=== PATIENT | male | born 1995 | race Caucasian/White ===

== ENCOUNTER 2018-11-09 01:06 | Emergency (ER) | payer SELFPAY ==
[2018-11-09 01:11] VITALS: BP 144/68; PULSE 51; RESP 16; TEMP 36.4; O2SAT 96
--- NOTE | 2018-11-09 01:12 | ED.GENADUL_ITS ---
Discharge Plan Disposition Patient Disposition: HOME Condition: Good Discharge Details Chief Complaint: EyeProblem Clinical Impression: Eye foreign body Primary Care Provider: Lamin Baez ED Provider: Dimas Griffith [place] Meds and New Rx's Prescriptions: New erythromycin 5 mg/gram (0.5 %) ointment 0.5 inch OP QID Qty: 3.5 RF: 0 Discharge Instructions Instructions: Erythromycin (Into the eye), Eye Foreign Body (ED) Additional Instructions: The metallic piece has been removed but there is a residual rust ring. He should contact [facility] in the morning for follow-up. Apply erythromycin ointment to the eye every 4-6 hours. Use Motrin or Tylenol for discomfort. Return to ED for increasing pain, change in vision, other problems. Referrals: [facility] [Outside] Medical Decision Making Patient with foreign body sensation left eye after grinding metal. Tetracaine drops applied. Fluorescein staining negative. Small metallic foreign body noted in the area of the medial lower quadrant. This was removed with Q-tip. Exam under slit-lamp reveals residual rust ring and corneal defect. Patient follows with Dr. Pleitez and has an appointment for Wednesday because of the broken glasses. Patient told that he should make follow-up for later today due to the rust ring. He is started on erythromycin ointment. He may use Motrin and Tylenol for pain. Return to ED if any problems, visual changes, increased pain. Note visual acuity was not done as he does not have his glasses with him. HPI General Mode of arrival: ambulatory . Date/Time Provider Initiated Documentation: 11/09/18 01:11 . Limitations to Documentation: no limitations . Information obtained by: patient . HPI Narrative: Patient presents to ED with left eye pain and irritation. Patient was grinding at work yesterday morning. He was wearing safety goggles. He felt something go in his eye. He has been irrigating it throughout the day. Continues to bother him. No one has been able to see anything but he finally come in because of the discomfort. He denies other injury. He does wear glasses but he broke those yesterday as well. His tetanus is up-to-date. Related Data Home Medications Medication Instructions Recorded Confirmed erythromycin 0.5 inch OP QID #3.5 gm 11/09/18 Previous Rx's Medication Instructions Recorded erythromycin 0.5 inch OP QID #3.5 gm 11/09/18 Allergies Allergy/AdvReac Type Severity Reaction Status Date / Time No Known Allergies Allergy Unverified 11/09/18 01:15 Review of Systems Eyes Eyes: Denies change in vision, Reports irritation and Reports eye pain PFS Social History Smoking/Tobacco Use Status: Current every day Alcohol Intake: current Alcohol Intake frequency: holidays/special occasions only Drug use: Daily Substance use type: marijuana Do you feel safe at home: Yes Do you feel safe in your relationship?: Yes Exam Const General: cooperative and comfortable Orientation: alert and oriented x3 Eyes Periorbital: periorbital findings normal Eyelids: eyelids normal Conjunctivae: conjunctival abnormality left conjunctival injection Sclera: scleral abnormality left scleral injection Cornea: corneas abnormal on the left foreign body metallic and with rust ring present Pupils: PERRL EOM: EOM intact bilaterally Procedures FB Removal Eye Location: eye (L) Topical anesthetic used: tetracaine Foreign body: metal Evidence of corneal penetration: No Technique: cotton tip swab Procedure performed under: direct visualization with magnification Post-procedure medication: ophthalmic antibiotic Patient tolerated procedure: well Complications: residual rust ring
[2018-11-09] MEDS: Fluorescein STRIPS 100/BOX 1 MG OP (01:16)
[2018-11-09] MEDS: Tetracaine 0.5% 4 ML BTL OP (01:17)
[2018-11-09 01:36] VITALS: BP 144/68; PULSE 51; RESP 16; O2SAT 96
[2018-11-09] MEDS: Erythromycin Ophth Oint 3.5 GM TUBE OS (01:38)
[2018-11-09] MEDS: Ibuprofen 600 MG TAB PO (01:38)
== END 2018-11-09 01:36 | disposition home or self-care (01) ==
PROVIDERS: Emergency Provider Emergency Medicine; PCP Physician Assistant
DX: T15.91XA Foreign body on external eye, part unspecified, right eye, initial encounter (principal)
CPT/HCPCS: 99283

== ENCOUNTER 2018-11-11 14:32 | Outpatient (CLI) | payer SELFPAY ==
[2018-11-14 14:25] LABS: GC Result Negative; Specimen Description URINE
[2018-11-14 15:19] LABS: Chlamydia Result Positive
== END 2018-11-11 14:52 ==
PROVIDERS: PCP Physician Assistant; Visit Provider Naturopath
DX: R30.0 Dysuria (principal); Z11.3 Encounter for screening for infections with a predominantly sexual mode of transmission
CPT/HCPCS: 36415; 86900; 86901; 87491; 87591

== ENCOUNTER 2018-11-13 09:26 | Outpatient (CLI) | payer SELFPAY ==
[2018-11-14 09:10] LABS: HBs Antibody, Quant <3.1 mIU/mL; Hepatitis B Surface Ab Negative
[2018-11-14 09:16] LABS: Hepatitis B Surface Ag Negative (NEGAT)
[2018-11-14 10:11] LABS: Hep B Core Antibody Negative (NEGAT)
[2018-11-14 10:12] LABS: HIV-1/2 Ag & Ab Screen Negative (NEGAT)
[2018-11-14 10:56] LABS: Hepatitis C Ab w Rflx HCV PCR Negative (NEGAT)
[2018-11-14 13:07] LABS: HSV Type 1 Ab, IgG Positive; HSV Type 2 Ab, IgG Negative; Syphilis Serology (RPR) Negative (Negative)
[2018-11-15 19:59] LABS: HSV Ab Screen, IGM by EIA Negative (Negative)
== END 2018-11-13 09:46 ==
PROVIDERS: PCP Physician Assistant; Visit Provider Naturopath
DX: Z11.3 Encounter for screening for infections with a predominantly sexual mode of transmission (principal); Z20.2 Contact with and (suspected) exposure to infections with a predominantly sexual mode of transmission; Z11.4 Encounter for screening for human immunodeficiency virus [HIV]; Z11.59 Encounter for screening for other viral diseases
CPT/HCPCS: 36415; 86704; 86706; 86803; 87340; 87389; 86592; 86694; 86695; 86696